=== PATIENT | female | born 1935 | race Caucasian/White ===

== ENCOUNTER 2019-06-11 06:03 | Day surgery (SDC) | payer OTHER | END 2019-06-11 10:15 | disposition home or self-care (01) | LOC: JASU-SURG 06:03 ==

== ENCOUNTER 2021-08-03 04:41 | Day surgery (SDC) | payer OTHER ==
[2021-08-02 16:11] VITALS: BMI 28.3
[~2021-08-03 04:41] MED LIST: ACETAMINOPHEN 325 MG TABLET (FP) PO PRN; CHONDROITIN SU A/HYALUR SOD 1 KIT IO ONE; EPINEPHrine/PF 1 MG/1 ML (1:1,000) AMPULE SQ ONE; LIDOCAINE HCL 1% PRESERVATIVE FREE - 30ML VIAL IO ONE
[2021-08-03] MEDS ORDERED: TROPICAMIDE 1% OPHTH SOLN 15 ML BOTTLE ONE (06:58)
[2021-08-03] MEDS ORDERED: KETOROLAC TROMETHAMINE 0.5% EYE DROP 1 DROP DROPS ONE (06:58)
[2021-08-03] MEDS ORDERED: CYCLOPENTOLATE HCL 1% OPHTH SOLN 2 ML BOTTLE ONE (06:58)
[2021-08-03] MEDS ORDERED: OFLOXACIN 0.3% OPHTHALMIC SOLUTION 5 ML BOTTLE ONE (06:58)
[2021-08-03] MEDS ORDERED: PHENYLEPHRINE 2.5% OPTHALMIC DROP BOTTLE ONE (06:59)
[2021-08-03] MEDS ORDERED: LIDOCAINE HCL/PF 1% SDV 5ML VIAL ONE (07:16)
[2021-08-03] MEDS ORDERED: EPINEPHrine/PF 1 MG/1 ML (1:1,000) AMPULE ONE (07:16)
[2021-08-03] MEDS ORDERED: TETRACAINE 0.5% OPHTH SOLN 2 ML BOTTLE ONE (07:16)
[2021-08-03] MEDS ORDERED: POVIDONE-IODINE 5% OPHTHALMIC PREP 30 ML SOLUTION ONE (07:16)
[2021-08-03] MEDS: TROPICAMIDE 1% OPHTH SOLN 15 ML BOTTLE OP SCH ×2 (07:40→07:50)
[2021-08-03] MEDS: CYCLOPENTOLATE HCL 1% OPHTH SOLN 2 ML BOTTLE OP SCH ×3 (07:47→07:54)
[2021-08-03] MEDS: KETOROLAC TROMETHAMINE 0.5% EYE DROP 1 DROP DROPS OP SCH ×3 (07:48→07:55)
[2021-08-03] MEDS: PHENYLEPHRINE 2.5% OPHTH SOLN 15 ML BOTTLE OP SCH ×3 (07:51→07:52)
[2021-08-03] MEDS: OFLOXACIN 0.3% OPHTHALMIC SOLUTION 5 ML BOTTLE OP SCH (07:53)
[2021-08-03] MEDS ORDERED: PROPOFOL 20 ML ONE ×3 (09:06)
[2021-08-03] MEDS ORDERED: LIDOCAINE HCL/PF 2% SDV 5ML VIAL ONE (09:07)
[2021-08-03] MEDS ORDERED: ETOMIDATE 20 MG/10 ML AMPUL IVPUSH ONE (09:09)
[2021-08-03] MEDS ORDERED: LIDOCAINE HCL 1% PRESERVATIVE FREE - 30ML VIAL IO ONE (09:29)
[2021-08-03] MEDS ORDERED: CHONDROITIN SU A/HYALUR SOD 1 KIT IO ONE (09:30)
[2021-08-03] MEDS ORDERED: EPINEPHrine/PF 1 MG/1 ML (1:1,000) AMPULE SQ ONE (09:30)
[2021-08-03] MEDS ORDERED: ONDANSETRON 4 MG/2 ML VIAL IVPUSH PRN (10:05)
[2021-08-03] MEDS ORDERED: SODIUM CHLORIDE 1,000 ML IV SCH (10:15)
[2021-08-03 12:33] VITALS: BP 150/54; PULSE 60; TEMP 97.5
== END 2021-08-03 11:30 | disposition home or self-care (01) ==
LOC: JASU-SURG 04:41
PROVIDERS: ATTEND Ophthalmology
PROC: 08RJ3JZ Replacement of Right Lens with Synthetic Substitute, Percutaneous Approach (ICD-10-PCS; principal; 2021-08-03 09:00)
DX: H26.9 Unspecified cataract (principal); E11.9 Type 2 diabetes mellitus without complications; I10 Essential (primary) hypertension
CPT/HCPCS: 94760

== ENCOUNTER 2022-11-25 11:54 | Inpatient (IN) | payer OTHER ==
[2022-11-25] MEDS ORDERED: MAG HYDROX/AL HYDROX/SIMETH -MYLANTA- ORAL SUSPENSION PO ONE (14:08)
[2022-11-25] MEDS ORDERED: FAMOTIDINE 20 MG/50 ML IVPB 20 MG/50 ML MG IVPB ONE ×2 (14:08→14:16)
[2022-11-25] MEDS ORDERED: MAG HYDROX/AL HYDROX/SIMETH 30 ML UNIT-DOSE CUP ONE (14:15)
[2022-11-25 14:23] LABS: BASO % 0.7 % (0-2.0); EOS % 0.8 % (0-4.5); HEMATOCRIT 38.3 % (32.4-45.2); HEMOGLOBIN 12.9 GM/dL (10.7-15.3); LYMPH % 24.6 % (8-40); MCH 32.1 pg (25.7-33.7); MCHC 33.7 g/dl (32.0-36.0); MEAN CELL VOLUME 95.4 fl (80-96); MEAN PLT VOLUME 8.1 fl (7.5-11.1); MONO % 6.8 % (3.8-10.2); NEUT % 67.1 % (42.8-82.8); PLATELET COUNT 207 10^3/uL (134-434); RBC 4.01 M/mm3 (3.60-5.2); RDW 12.8 % (11.6-15.6); WHITE BLOOD COUNT 7.1 K/mm3 (4.0-10.0)
[2022-11-25 14:41] LABS: ALBUMIN 3.7 g/dl (3.4-5.0); BLOOD UREA NITROGEN 8.6 mg/dL (7-18); CALCIUM 8.9 mg/dL (8.5-10.1)
[2022-11-25 14:44] LABS: CREATININE 0.7 mg/dL (0.55-1.3)
[2022-11-25 14:46] LABS: BILIRUBIN,TOTAL 0.4 mg/dL (0.2-1); TOT PROT 6.8 g/dl (6.4-8.2)
[2022-11-25 14:48] LABS: INR 1.09 (0.83-1.09); PROTHROMBIN TIME (PATIENT) 12.5 SEC (9.7-13.0)
[2022-11-25 14:50] LABS: ACTIVATED PTT 28.7 SECONDS (25.2-36.5)
[2022-11-25] MEDS ORDERED: SODIUM CHLORIDE 0.9% 500 ML INFUS.BAG IV ONE (15:10)
[2022-11-25] MEDS ORDERED: SODIUM CHLORIDE 500 ML IV STA (16:23)
[2022-11-25 16:53] LABS: EPI CELLS 2 /uL (0-25.1); HYALINE CASTS 0 /uL (0-3.1); URINE APPEARANCE CLEAR; URINE BACTERIA 4 /uL (0-1359); URINE BILIRUBIN NEGATIVE (NEGATIVE); URINE COLOR YELLOW; URINE GLUCOSE (UA) NEGATIVE (NEGATIVE); URINE KETONE NEGATIVE (NEGATIVE); URINE LEUK ESTERASE NEGATIVE (NEGATIVE); URINE NITRITE NEGATIVE (NEGATIVE); URINE PROTEIN NEGATIVE (NEGATIVE); URINE RBC 27 /uL (0-23.9); URINE UROBILINOGEN 0.2 mg/dL (0.2-1.0); URINE WBC 1 /uL (0-25.8)
[2022-11-25 17:21] LABS: CALCIUM 8.6 mg/dL (8.5-10.1)
[2022-11-25 17:22] LABS: BLOOD UREA NITROGEN 8.2 mg/dL (7-18)
[2022-11-25 17:25] LABS: CREATININE 0.7 mg/dL (0.55-1.3)
[2022-11-25] MEDS ORDERED: ACETAMINOPHEN 1000 MG/100 ML BAG IVPB ONE (21:42)
[2022-11-25] MEDS ORDERED: ACETAMINOPHEN INJECTION 100 ML IVPB ONE (21:44)
[2022-11-25] MEDS ORDERED: METOCLOPRAMIDE HCL INJECTION 10 MG/2 ML VIAL IVPUSH ONE (21:44)
[2022-11-25] MEDS ORDERED: ONDANSETRON 4 MG/2 ML VIAL IVPUSH PRN (21:54)
[2022-11-25] MEDS ORDERED: SIMETHICONE 80 MG TAB.CHEW (FP) PO PRN (21:55)
[2022-11-25] MEDS ORDERED: SIMETHICONE 80 MG TAB.CHEW (FP) PO ONE (21:56)
[2022-11-25] MEDS ORDERED: SODIUM CHLORIDE 1,000 ML IV SCH (22:00)
[2022-11-25] MEDS ORDERED: METOCLOPRAMIDE HCL INJECTION 10 MG/2 ML VIAL ONE (22:05)
[2022-11-25] MEDS: carBAMazepine XR 200 MG TAB.ER.12H PO SCH (23:41)
[2022-11-25] MEDS: ASCORBIC ACID 500 MG TABLET (FP) PO SCH (23:41)
[2022-11-26 09:47] LABS: CALCIUM 8.4 mg/dL (8.5-10.1)
[2022-11-26 09:48] LABS: BLOOD UREA NITROGEN 7.2 mg/dL (7-18)
[2022-11-26 09:51] LABS: CREATININE 0.7 mg/dL (0.55-1.3)
[2022-11-26] MEDS ORDERED: METOCLOPRAMIDE HCL INJECTION 10 MG/2 ML VIAL IVPUSH ONE (10:00)
[2022-11-26] MEDS: amLODIPine BESYLATE 10 MG TABLET (FP) PO SCH (10:29)
[2022-11-26] MEDS: CYANOCOBALAMIN 1,000 MCG TABLET (FP) PO SCH (10:29)
[2022-11-26] MEDS: PANTOPRAZOLE 20 MG TABLET PO SCH (10:29)
[2022-11-26] MEDS: ASCORBIC ACID 500 MG TABLET (FP) PO SCH ×2 (10:29→21:27)
[2022-11-26] MEDS: busPIRone HCL 10 MG TABLET (FP) PO SCH (10:30)
[2022-11-26] MEDS: ATORVASTATIN CA 10 MG TABLET (FP) PO SCH (10:30)
[2022-11-26] MEDS: ENOXAPARIN NA (PORCINE) 40 MG/0.4 ML DISP.SYRIN SQ SCH (10:30)
[2022-11-26] MEDS: carBAMazepine XR 200 MG TAB.ER.12H PO SCH ×2 (10:31→21:27)
[2022-11-26] MEDS: ENALAPRIL MALEATE 10 MG TABLET PO SCH (13:28)
[2022-11-26] MEDS: CALCIUM 250MG/VIT-D 125 UNITS 1 COMBO TABLET PO SCH (13:29)
[2022-11-26 15:59] LABS: HEMATOCRIT 35.1 % (32.4-45.2); HEMOGLOBIN 11.7 GM/dL (10.7-15.3); MCHC 33.4 g/dl (32.0-36.0); MEAN CELL VOLUME 95.9 fl (80-96); MEAN PLT VOLUME 8.8 fl (7.5-11.1); PLATELET COUNT 190 10^3/uL (134-434); RBC 3.66 M/mm3 (3.60-5.2); RDW 13.3 % (11.6-15.6); WHITE BLOOD COUNT 5.6 K/mm3 (4.0-10.0)
[2022-11-26 16:20] LABS: CALCIUM 8.3 mg/dL (8.5-10.1); MAGNESIUM 1.7 mg/dL (1.8-2.4)
[2022-11-26 16:22] VITALS: RESP 18
[2022-11-26 16:24] LABS: CREATININE 0.8 mg/dL (0.55-1.3)
[2022-11-26 23:04] VITALS: BMI 30.2
[2022-11-27] MEDS ORDERED: ACETAMINOPHEN 500 MG TABLET (FP) PO ONE (05:06)
[2022-11-27] MEDS: ENOXAPARIN NA (PORCINE) 40 MG/0.4 ML DISP.SYRIN SQ SCH (09:18)
[2022-11-27] MEDS: PANTOPRAZOLE 20 MG TABLET PO SCH (09:18)
[2022-11-27] MEDS: ATORVASTATIN CA 10 MG TABLET (FP) PO SCH (09:24)
[2022-11-27] MEDS: CYANOCOBALAMIN 1,000 MCG TABLET (FP) PO SCH (09:25)
[2022-11-27] MEDS: CALCIUM 250MG/VIT-D 125 UNITS 1 COMBO TABLET PO SCH (09:25)
[2022-11-27] MEDS: amLODIPine BESYLATE 10 MG TABLET (FP) PO SCH (09:25)
[2022-11-27] MEDS: busPIRone HCL 10 MG TABLET (FP) PO SCH (09:25)
[2022-11-27] MEDS: ASCORBIC ACID 500 MG TABLET (FP) PO SCH (09:25)
[2022-11-27] MEDS: carBAMazepine XR 200 MG TAB.ER.12H PO SCH (09:26)
[2022-11-27] MEDS: ENALAPRIL MALEATE 10 MG TABLET PO SCH (09:26)
[2022-11-27 12:00] LABS: HEMATOCRIT 33.4 % (32.4-45.2); HEMOGLOBIN 11.4 GM/dL (10.7-15.3); MCH 32.6 pg (25.7-33.7); MCHC 34.2 g/dl (32.0-36.0); MEAN CELL VOLUME 95.2 fl (80-96); MEAN PLT VOLUME 8.5 fl (7.5-11.1); PLATELET COUNT 185 10^3/uL (134-434); RBC 3.51 M/mm3 (3.60-5.2); WHITE BLOOD COUNT 6.2 K/mm3 (4.0-10.0)
[2022-11-27 12:25] LABS: TOT PROT 5.6 g/dl (6.4-8.2)
[2022-11-27 12:26] LABS: BILIRUBIN,TOTAL 0.3 mg/dL (0.2-1)
[2022-11-27 12:31] LABS: PHOSPHOROUS 3.1 mg/dL (2.5-4.9)
[2022-11-27 12:32] LABS: BLOOD UREA NITROGEN 10.9 mg/dL (7-18); CREATININE 0.8 mg/dL (0.55-1.3); MAGNESIUM 1.6 mg/dL (1.8-2.4)
[2022-11-27 12:33] LABS: CALCIUM 8.2 mg/dL (8.5-10.1)
[2022-11-27] MEDS ORDERED: metroNIDAZOLE 250 MG TABLET PO SCH (14:00)
[2022-11-27] MEDS ORDERED: ONDANSETRON 4 MG TABLET PO SCH (14:00)
[2022-11-27] MEDS: SIMETHICONE 80 MG TAB.CHEW (FP) PO SCH ×2 (14:00→17:54)
[2022-11-27 14:42] VITALS: BP 134/48; PULSE 63; TEMP 98.2
[2022-11-27] MEDS ORDERED: POTASSIUM CHLORIDE ORAL LIQUID 20 MEQ/15 ML PO ONE (14:59)
[2022-11-27] MEDS ORDERED: POTASSIUM CHLORIDE TABS 20 MEQ TABLET.ER (FP) PO ONE (15:40)
[2022-11-28] MEDS ORDERED: PANTOPRAZOLE 40 MG TABLET PO SCH (10:00)
== END 2022-11-27 18:45 | disposition home or self-care (01) | DRG 389 ==
LOC: JER 11:54 → JERBED 16:39 → J5S 22:46
PROVIDERS: ADMIT Family Medicine; ATTEND Internal Medicine
DX: K56.7 Ileus, unspecified (principal); E87.1 Hypo-osmolality and hyponatremia; R42 Dizziness and giddiness; I10 Essential (primary) hypertension; K21.9 Gastro-esophageal reflux disease without esophagitis; G50.0 Trigeminal neuralgia; E78.5 Hyperlipidemia, unspecified; E87.6 Hypokalemia
CPT/HCPCS: 0241U-QW; 36415; 71045-TC-FY; 74018-TC-FY; 74177-TC; 80048; 80053; 81003; 82436; 82533; 82570; 83735; 83935; 84100; 84133; 84156; 84300; 84443; 84484; 85025; 85027; 85610; 85730; 86850; 86900; 86901; 87086; 93005; 93010; 97116-GP; 99285-25; Q9967